=== PATIENT | male | born 1965 | race Caucasian/White ===

== ENCOUNTER 2020-01-20 06:46 | Outpatient (CLI) | payer BC, SELFPAY ==
[2020-01-20 07:06] LABS: Basophils Absolute Auto 0.06 K/mm3 (0.00-0.10); Basophils Percent Auto 0.9 % (0.0-1.0); Eosinophils Percent Auto 4.6 % (1.0-6.0); Hemoglobin 15.7 g/dL (14.0-18.0); Immature Granulocyte Absolute 0.01 K/mm3 (0.00-0.00); Immature Granulocyte Percent A 0.2 % (0.0-0.0); Lymphocytes Absolute Auto 2.18 K/mm3 (1.10-4.50); Lymphocytes Percent Auto 33.7 % (18.0-42.0); Mean Corpuscular HGB Conc 34.1 g/dL (32.0-36.0); Mean Corpuscular Hemoglobin 33.1 pg (27.0-31.0); Mean Platelet Volume 8.3 fl (8.7-11.0); Monocytes Absolute Auto 0.45 K/mm3 (0.10-0.90); Neutrophils Absolute Auto 3.5 K/mm3 (1.7-7.2); Neutrophils Percent Auto 53.6 % (50.0-70.0); Platelet Count Result 217 K/mm3 (150-420); Red Blood Count 4.74 M/mm3 (4.70-6.10); Red Cell Distribution Width 12.3 % (11.6-14.4); White Blood Count 6.5 K/mm3 (4.8-10.8)
[2020-01-20 08:28] LABS: Alanine Aminotransferase 36 U/L (16-63); Albumin Level 3.8 g/dL (3.4-5.0); Alkaline Phosphatase 55 U/L (46-116); Anion Gap 8 mmol/L (8-16); Aspartate Amino Transferase 15 U/L (15-37); Bilirubin,Total 0.4 mg/dL (0.00-1.00); Blood Urea Nitrogen 13 mg/dL (7-18); Calcium 9.3 mg/dL (8.5-10.1); Carbon Dioxide 30 mmol/L (21-32); Chloride 105 mmol/L (98-108); Cholesterol 219 mg/dL (0-200); Estimated Glomerular Filt Rate > 60; Glucose 100 mg/dL (70-99); HDL Direct 44 mg/dL (40-60); LDL Cholesterol Calculated 149 mg/dL (<130); Magnesium 2.3 mg/dL (1.8-2.4); Osmolality Calculated 296 mOsm/kg (285-295); Potassium 4.5 mmol/L (3.5-5.1); Sodium 143 mmol/L (136-145); Total Protein 6.8 g/dL (6.4-8.2); Triglycerides 130 mg/dL (0-150)
[2020-01-20 08:54] LABS: Thyroid Stimulating Hormone Reflex 0.66 u/IU/mL (0.36-3.74)
== END 2020-01-20 06:47 | disposition home or self-care (01) ==
PROVIDERS: PCP Family Medicine; Visit Provider Family Medicine
DX: E78.5 Hyperlipidemia, unspecified (principal); I10 Essential (primary) hypertension; Z12.2 Encounter for screening for malignant neoplasm of respiratory organs
CPT/HCPCS: 36415; 80053; 80061; 83735; 84443; 85025

== ENCOUNTER 2020-02-16 16:05 | Outpatient (CLI) | payer BC, SELFPAY ==
--- NOTE | ~2020-02-16 | CT_ITS ---
EXAMINATION:CT lung screening DATE: 02/16/2020 16:24 INDICATION: Personal history of tobacco dependence. Smoker who quit 2 months ago with 40 pack year hi story. TECHNIQUE: Computed tomography (CT) of the chest was performed without intravenous contrast. Automate d exposure control and iterative reconstruction technique were employed. The dose-length product (DLP ) was 96.62 mGy-cm. COMPARISON: Chest CT 10/14/2014 FINDINGS: There is mild scarring at the lung apices. There is a new 3 mm nodule in right upper lobe. No pleural effusion. The heart size is normal. There are coronary artery calcifications. No pericardi al effusion. There is mild thoracic spondylosis and severe cervical spondylosis. IMPRESSION: 1. Lung-RADS category 2: Benign appearance or behavior. Continue annual screening with noncontrast lo w-dose chest CT in 12 months. Reviewed, dictated and finalized at location A. DIVING TEACHER IMPRESSION: 1. Lung-RADS category 2: Benign appearance or behavior. Continue annual screeni ng with noncontrast low-dose chest CT in 12 months.
== END 2020-02-16 16:06 | disposition home or self-care (01) ==
LOC: CHSIMG 16:07
PROVIDERS: PCP Family Medicine; Visit Provider Family Medicine
DX: Z12.2 Encounter for screening for malignant neoplasm of respiratory organs (principal); Z87.891 Personal history of nicotine dependence
CPT/HCPCS: G0297

== ENCOUNTER 2020-03-25 15:33 | Outpatient (CLI) | payer BC, SELFPAY ==
--- NOTE | 2020-03-25 15:39 | ECG_ITS ---
Measurements Intervals [place] Rate: 52 P: 58 MD: 197 QRS: 43 QRSD: 82 T: 56 QT: 408 QTc: 382 Interpretive Statements SINUS BRADYCARDIA RSR' IN V1 OR V2, PROBABLY NORMAL VARIANT BORDERLINE ECG Electronically Signed On 03-25-2020 16:02:43 MACHINE FARMWORKER by Gerard Villanueva D.O.
== END 2020-03-25 15:34 | disposition home or self-care (01) ==
PROVIDERS: PCP Family Medicine; Visit Provider Internal Medicine Cardiovascular Disease
DX: R00.0 Tachycardia, unspecified (principal)
CPT/HCPCS: 93005

== ENCOUNTER 2020-06-23 07:27 | Outpatient (CLI) | payer BC, SELFPAY ==
[2020-06-23 08:34] LABS: Alanine Aminotransferase 45 U/L (16-63); Albumin Level 3.8 g/dL (3.4-5.0); Alkaline Phosphatase 48 U/L (46-116); Anion Gap 7 mmol/L (8-16); Aspartate Amino Transferase 12 U/L (15-37); Bilirubin,Total 0.3 mg/dL (0.00-1.00); Blood Urea Nitrogen 17 mg/dL (7-18); Calcium 9.2 mg/dL (8.5-10.1); Carbon Dioxide 29 mmol/L (21-32); Chloride 103 mmol/L (98-108); Cholesterol 173 mg/dL (0-200); Estimated Glomerular Filt Rate > 60; Glucose 98 mg/dL (70-99); HDL Direct 43 mg/dL (40-60); LDL Cholesterol Calculated 87 mg/dL (<130); Osmolality Calculated 289 mOsm/kg (285-295); Potassium 4.3 mmol/L (3.5-5.1); Sodium 139 mmol/L (136-145); Total Protein 6.8 g/dL (6.4-8.2); Triglycerides 215 mg/dL (0-150)
[2020-06-27 11:58] LABS: Vitamin D 25 Hydroxy 46 ng/mL (30-100)
== END 2020-06-23 07:28 | disposition home or self-care (01) ==
LOC: CHSLAB 07:29
PROVIDERS: Nurse Practitioner Family; PCP Family Medicine; Visit Provider Internal Medicine Cardiovascular Disease
DX: E78.5 Hyperlipidemia, unspecified (principal); E55.9 Vitamin D deficiency, unspecified
CPT/HCPCS: 36415; 80053; 80061; 82306

== ENCOUNTER 2021-03-01 06:56 | Outpatient (CLI) | payer BC, SELFPAY ==
[2021-03-01 08:59] LABS: Alanine Aminotransferase 46 U/L (16-63); Albumin Level 3.7 g/dL (3.4-5.0); Alkaline Phosphatase 61 U/L (46-116); Anion Gap 10 mmol/L (8-16); Aspartate Amino Transferase 19 U/L (15-37); Bilirubin,Total 0.3 mg/dL (0.00-1.00); Blood Urea Nitrogen 14 mg/dL (7-18); Calcium 8.7 mg/dL (8.5-10.1); Carbon Dioxide 28 mmol/L (21-32); Chloride 102 mmol/L (98-108); Cholesterol 175 mg/dL (0-200); Estimated Glomerular Filt Rate > 60; Glucose 102 mg/dL (70-99); HDL Direct 45 mg/dL (40-60); LDL Cholesterol Calculated 100 mg/dL (<130); Osmolality Calculated 290 mOsm/kg (285-295); Potassium 4.4 mmol/L (3.5-5.1); Sodium 140 mmol/L (136-145); Total Protein 6.9 g/dL (6.4-8.2); Triglycerides 152 mg/dL (0-150)
== END 2021-03-01 06:57 | disposition home or self-care (01) ==
LOC: CHSLAB 06:58
PROVIDERS: PCP Family Medicine; Visit Provider Internal Medicine Cardiovascular Disease
DX: E78.5 Hyperlipidemia, unspecified (principal)
CPT/HCPCS: 36415; 80053; 80061

== ENCOUNTER 2021-03-03 16:10 | Outpatient (CLI) | payer BC, SELFPAY ==
--- NOTE | ~2021-03-03 | CT_ITS ---
EXAMINATION: CT diagnostic chest wo con DATE: 03/03/2021 16:23 INDICATION: Pulmonary nodules. History of smoking. TECHNIQUE: Computed tomography (CT) of the chest was performed without intravenous contrast. The dose -length product was 230.51 mGy-cm. Automated exposure control and iterative reconstruction technique were employed. COMPARISON: CT dated 02/16/2020 FINDINGS: There is a stable 3 mm right upper lobe nodule, image 56. No significant pleural or pericar dial effusion. There is mild atherosclerosis of the aorta and coronary arteries. Small hiatal hernia. The upper abdomen is unremarkable. No thoracic lymphadenopathy. No new pulmonary nodules or masses. No endobronchial lesions. No pneumothorax. No focal airspace consolidation. No acute osseous abnormal ity. Mild thoracic spondylosis. IMPRESSION: 1. Stable 3 mm right upper lobe nodule, likely benign. Consider follow-up low dose CT chest in 12 mon ths. Reviewed, dictated and finalized at location A. NE PATROLLER IMPRESSION: 1. Stable 3 mm right upper lobe nodule, likely benign. Consider follow-up low d ose CT chest in 12 months.
== END 2021-03-03 16:11 | disposition home or self-care (01) ==
LOC: CHSIMG 16:10
PROVIDERS: PCP Family Medicine; Visit Provider Internal Medicine Cardiovascular Disease
DX: R91.1 Solitary pulmonary nodule (principal)
CPT/HCPCS: 71250

== ENCOUNTER 2022-01-14 02:49 | Emergency (ER) | payer BC, SELFPAY ==
--- NOTE | ~2022-01-14 | XR_ITS ---
EXAMINATION: XR shoulder RT min 2V DATE: 01/14/2022 03:22 INDICATION: Right shoulder pain post fall down stairs TECHNIQUE: AP internally and externally rotated, AP oblique externally rotated and transscapular Y vi ews of the right shoulder were obtained. COMPARISON: None FINDINGS: Normal alignment. No fracture. Glenohumeral joint is normal. Mild acromioclavicular osteoarthritis. Soft tissues are unremarkable. Visualized portion of the right lung are clear. IMPRESSION: Mild right acromioclavicular osteoarthritis. No acute osseous abnormality. Reviewed, dictated and finalized at location A.
[2022-01-14 02:55] VITALS: BP 149/93; PULSE 71; RESP 18; TEMP 36.3; O2SAT 96
--- NOTE | 2022-01-14 03:24 | ED.FALL ---
HPI - Fall General Chief Complaint: Fall Stated Complaint: FALL Time Seen by Provider: 01/14/22 03:24 Source: patient, EMS and RN notes reviewed Mode of arrival: EMS Limitations: no limitations History of Present Illness HPI Narrative: Patient states he lost his balance fell down some steps going down to the basement. complaint: fall Onset (ago): minute(s) (30) Fall from: standing Fall witnessed: yes, by family Place fall occurred: home Loss of consciousness: none Prolonged down time: no Symptoms prior to fall: none Context: tripped/slipped Location of injury - extremities: Right: shoulder Severity: moderate Quality: dull and aching Associated symptoms (after fall): denies Related Data Home Medications Medication Instructions Recorded Confirmed omega-3 fatty acids 1,000 mg 1,000 mg PO DAILY 02/24/21 01/14/22 capsule (Fish Oil Concentrate) Allergies Allergy/AdvReac Type Severity Reaction Status Date / Time No Known Allergies Allergy Verified 09/04/21 13:55 Review of Systems Review of Systems: All systems reviewed & are unremarkable except as noted in HPI and below PMFSH Past Medical History Medical History Adult general medical exam Anxiety with depression Chronic low back pain Chronic sinusitis Cigarette nicotine dependence COPD (chronic obstructive pulmonary disease) Dyslipidemia Dyspnea Encounter for screening for lung cancer Erectile dysfunction Eustachian tube dysfunction GENNY (generalized anxiety disorder) Hyperlipidemia Hyperlipidemia Nicotine dependence Persistent cough for 3 weeks or longer Screening for colorectal cancer Tobacco abuse Vitamin D deficiency Witnessed episode of apnea Surgical History Surgical History History of hand surgery fingers tied back together No history of previous surgery Family History Family History Father Heart disease Mother Heart disease Social History Social History Smoking packs per day: 0 Smoking cigarettes per day: 0.0 Years smoked: 43 Smoking pack-years: 0.00 Smoking status: Former smoker Tobacco type: cigarettes Additional smoking assessment comments: 01/2020 Alcohol intake: never Substance use: never Substance use type: does not use Additional living arrangements comments: Additional occupation/education comments: [employer] Gender identity (if verbalized by the patient): Male Spiritual care concerns: No Exam Const: General: healthy appearing, no acute distress and alert Nutritional Appearance: well nourished Orientation/consciousness: patient oriented x3 Limitations: no limitations HENMT: Head: normal to inspection Ears: external ears normal Face and sinus: normal facial exam Eyes: Conjunctivae: conjunctivae normal Pupils: Equal, round and reactive pupils present EOM: EOMs intact bilaterally Neck: Neck: normal visual inspection Resp: Effort & Inspection: normal respiratory effort Auscultation: clear to auscultation bilaterally Cardio: Rate: regular rate Rhythm: regular rhythm GI: Auscultation: normal bowel sounds Back/Spine/Pelvis: Cervical Spine: cervical ROM normal Thoracic/Lumbar Spine: thoraco-lumbar ROM normal Skin: General skin exam: normal color Rashes: no rashes Wounds: no wounds Neuro: General: patient oriented x3, moves all extremities, no focal motor deficits and CN's II-XI intact bilaterally Speech: normal speech Extrem: General: normal exam except as noted and no clubbing, cyanosis or edema Right upper extremity: shoulder/upper arm tenderness of the proximal humerus and abnormal ROM pain with active ROM in ABduction and pain with passive ROM with ABduction; no abrasions, no ecchymosis and no deformity Psych: Mental Status: mental status grossly lissette
[2022-01-14 03:40] VITALS: BP 138/86; PULSE 78; RESP 20; O2SAT 99
== END 2022-01-14 03:42 | disposition home or self-care (01) ==
PROVIDERS: Emergency Provider Emergency Medicine; PCP Family Medicine
DX: S40.011A Contusion of right shoulder, initial encounter (principal); W10.9XXA Fall (on) (from) unspecified stairs and steps, initial encounter
CPT/HCPCS: 73030; 99283

== ENCOUNTER 2022-01-19 07:22 | Outpatient (CLI) | payer BC, SELFPAY ==
--- NOTE | ~2022-01-19 | US_ITS ---
EXAMINATION: US abdomen limited DATE: 01/19/2022 08:02 INDICATION: Right upper quadrant pain TECHNIQUE: Multiple grayscale and Doppler ultrasound images of the abdomen were obtained. COMPARISON: None available FINDINGS: Bowel gas obscures visualization of the pancreas. The visualized portions of the pancreas a re unremarkable. The liver is normal with normal echogenicity and echotexture. No surface nodularity. Normal hepatopetal flow in the main portal vein. The gallbladder is normal with no abnormal wall thi ckening, pericholecystic fluid or stones. The normal common bile duct measures 3 mm. There was no son ographic Aldridge sign. IMPRESSION: 1. Normal sonographic study of the gallbladder. Reviewed, dictated and finalized at location A.
== END 2022-01-19 07:23 | disposition home or self-care (01) ==
LOC: CHSIMG 07:24
PROVIDERS: PCP Family Medicine; Visit Provider Family Medicine
DX: R10.11 Right upper quadrant pain (principal)
CPT/HCPCS: 76705

== ENCOUNTER 2022-04-03 09:11 | Outpatient (CLI) | payer BC, SELFPAY ==
--- NOTE | 2022-04-14 09:37 | P.PCNPFT_ITS ---
PFT Procedure Performed PFT Procedure Performed Spirometry with Pre/Post Bronchodilator Plethysmography (Lung Vol) Diffusing Cap (DLCO) Spirometry w/o Bronchodil PFT Interpretation DOS: 04/03/2022 REQUESTING: Dr Curtis REASON FOR TESTING: Shortness of breath PULMONARY FUNCTION TESTS Results are reliable and reproducible. Spirometry: pre bronchodilator FEV1 is 2.08 L, 73%, normal. Pre bronchodilator FVC 3.39 L, 94%, normal. FEV1/FVC is 61%, decreased. After bronchodilator, there is a 20% increase in FEV1, 2.5 L, 88% predicted. After bronchodilator there is a 21% increase in the FVC, 114%. The ratio remains decreased 61% predicted. Lung volumes: Total lung capacity is 6.12 L, 111% predicted, normal. Residual volume is 2.73 L, 138% predicted, increased, consistent with mild air trapping. RV/TLC is increased 45% consistent with air trapping. Diffusion: DLCO 21.4, 99% predicted, normal. DLCO /VA 3.77, 96% normal. Flow volume loop: There is extreme flattening of the inspiratory limb. IMPRESSION: This full pulmonary function study shows a mild obstructive ventilatory impairment with good response to bronchodilator, mild air trapping and normal diffusion. The flow volume loop is abnormal with flattening of the inspiratory limb which is consistent with variable extrathoracic upper airway obstruction. This flow volume loop finding is not specific and can be seen in a variety of conditions such as vocal fold paralysis, extrathoracic tr acheomalacia, polychondritis, and mobile tumors. Consider ENT evaluation. Melissa Lorenz MD
== END 2022-04-03 09:12 | disposition home or self-care (01) ==
LOC: CHSCARD 09:12
PROVIDERS: PCP Family Medicine; Visit Provider Family Medicine
DX: R06.00 Dyspnea, unspecified (principal); R94.2 Abnormal results of pulmonary function studies
CPT/HCPCS: 94060; 94726; 94729

== ENCOUNTER 2022-05-09 08:36 | Outpatient (CLI) | payer BC, SELFPAY ==
[2022-05-09 09:06] LABS: Hematocrit 49.6 % (40.0-54.0); Hemoglobin 16.7 g/dL (14.0-18.0); Mean Corpuscular HGB Conc 33.7 g/dL (32.0-36.0); Mean Corpuscular Hemoglobin 32.2 pg (27.0-31.0); Mean Corpuscular Volume 95.6 fL (78.0-102.0); Mean Platelet Volume 8.4 fl (8.7-11.0); Platelet Count Result 214 K/mm3 (150-420); Red Blood Count 5.19 M/mm3 (4.70-6.10); Red Cell Distribution Width 11.9 % (11.6-14.4); White Blood Count 7.7 K/mm3 (4.8-10.8)
[2022-05-09 09:28] LABS: Alanine Aminotransferase 41 U/L (16-63); Albumin Level 3.9 g/dL (3.4-5.0); Alkaline Phosphatase 49 U/L (46-116); Anion Gap 6 mmol/L (8-16); Aspartate Amino Transferase 16 U/L (15-37); Bilirubin,Total 0.3 mg/dL (0.00-1.00); Blood Urea Nitrogen 14 mg/dL (7-18); Calcium 9.1 mg/dL (8.5-10.1); Carbon Dioxide 35 mmol/L (21-32); Chloride 104 mmol/L (98-108); Estimated Glomerular Filt Rate > 60; Glucose 95 mg/dL (70-99); Osmolality Calculated 300 mOsm/kg (285-295); Potassium 4.1 mmol/L (3.5-5.1); Sodium 145 mmol/L (136-145); Total Protein 7.2 g/dL (6.4-8.2)
[2022-05-09 09:31] LABS: CRP < 0.5 mg/dL (0.0-0.9)
[2022-05-09 09:38] LABS: Thyroid Stimulating Hormone Reflex 0.83 u/IU/mL (0.36-3.74)
[2022-05-09 09:39] LABS: Rheumatoid Factor Screen Negative (Negative)
[2022-05-09 10:31] LABS: Erythrocyte Sedimentation Rate 4 mm/hr (0-20)
[2022-05-14 09:19] LABS: ANA Cascade Screen Negative (Negative)
== END 2022-05-09 08:37 | disposition home or self-care (01) ==
LOC: CHSLAB 08:37
PROVIDERS: PCP Family Medicine; Visit Provider Family Medicine
DX: E11.9 Type 2 diabetes mellitus without complications (principal); M25.50 Pain in unspecified joint
CPT/HCPCS: 36415; 80053; 84443; 85027; 85652; 86038; 86140; 86430

== ENCOUNTER 2024-09-09 07:35 | Outpatient (CLI) | payer OTHER, SELFPAY ==
--- OUTSIDE RECORDS SUMMARY | 2024-09-09 07:40 | XMS_ITS | CONTINUITY OF CARE DOCUMENT ---
Author Name rabia, rabia Address Unknown Organization [facility] Address [address] [place] [address] Phone [phone] Care Team Providers Care Biomass Boiler Operator Name Role Phone Baltazar DENG, Bubba Unavailable [phone] LAKEISHA GRAF MD Unavailable [phone] LAKEISHA GRAF MD Unavailable [phone] PROBLEMS Condition Status Date Provider Notes Tobacco abuse active Bubba Ledesma MD Hypercholesterolemia active Bubba Ledesma MD FAMILY HISTORY OF HEART DISEASE active Ibrahima Ledesma MD Chest pain-type to be determined active Carmelal Ledesma MD Shortness of breath active Bubba Suarez ENCOUNTERS Date Type Provider Location Encounter Diag nosis 4 - 6 In-person encounter Office Visit Bubba Ledesma MD [facility] Tobacco abuseHypercholesterolemiaFAMILY HISTORY OF HEART DISEASEChest pain-type to be determinedShortness of breath VITAL SIGNS Date Observation Value Provider Body Mass Index (Ratio) 23.56 kg/m2 Ibrahima Ledesma MD blood pressure, diastolic, left arm 78 mm [Hg] Bubba Ledesma MD blood pressure, systolic, left arm 128 mm [Hg] Bubba Ledesma MD blood pressure, diastolic, right arm 78 m m[Hg] Bubba Ledesma MD blood pressure, systolic, right arm 128 m m[Hg] Bubba Ledesma MD blood pressure, diastolic 78 mm[Hg] Garrett Ledesma MD blood pressure, systolic 128 mm[Hg] Carmella Ledesma MD pulse rate 66 /min Bubba Ledesma MD oxygen saturation, oximetry 94 % Bubba Ledesma MD respiratory rate E&M 16 /min Reji Ledesma MD weight E&M 146 [lb_av] Bubba Ledesma MD height E&M 66 [in_i] Bubba Ledesma MD ALLERGIES No Known Drug Allergies HISTORY OF MEDICATION USE Medication Status Instructions Dates Provider Indications Com ments ATORVASTATIN CALCIUM 40 MG ORAL TABLET active Bubba Ledesma MD SOCIAL HISTORY Date Observation Value Provider number of years as a smoker 36 a Bubba Ledesma MD smoking history, tot al pack/day 1 Bubba Ledesma MD cigarette use yes Bubba Ledesma MD social history E&M S moking History: Jamal alfonso currently smokes every day, since he was age 12. Jamal alfonso has been counseled to quit. Bubba Ledesma MD smoking/tobacco cess ation, patient education and counseling yes Bubba Ledesma MD smoking status Current every day smoker M lili Ledesma MD social history reviewed E&M revi ewed - no changes required Bubba Ledesma MD FAMILY HISTORY Family Member Condition Father Family History of Co ronary Artery Disease: INSURANCE PROVIDERS Payer name Policy type / Coverage type Orient red republican ID [employer]UG[employer] Other [id number] TREATMENT PLAN Date Name Performer printed to lorenzo: O rders: 9 9205 HIGH Complex (CPT-28444) S TR - Nuclear (76213) C omplete Echo (CPT-67803) F ull PFT (*) Bubba Ledesma MD printed to lorenzo: O rders: 9 9205 HIGH Complex (CPT-67802) S TR - Nuclear (21809) C omplete Echo (CPT-62057) F ull PFT (*) Bubba Ledesma MD printed to lorenzo: Strongly advised to quit smoking. Orders: 9 9205 HIGH Complex (CPT-49392) S TR - Nuclear (12767) C omplete Echo (CPT-58087) F ull PFT (*) Bubba Ledesma MD printed to lorenzo: On Atorvastatin. His updated medication list for this problem includes: Atorvastatin Calcium 40 Mg Oral Tabs (Atorvastatin calcium) Orders: 9 92 HIGH Complex (CPT-43945) S TR - Nuclear (97709) C omplete Echo (CPT-34818) F ull PFT (*) Bubba Ledesma MD printed to lorenzo: Right shoulder pain and shortness of breath in a pt who is physically very active. Unclear etiology. Will arrange for him to have a stress test, echocardiogram, and a PFT. & #13;Orders: 9 9205 HIGH Complex (CPT-37777) S TR - Nuclear (98883) C omplete Echo (CPT-77929) F ull PFT (*) Bubba Ledesma MD Date Name Full PFT Complete Echo STR - Nuclear
[2024-09-09 08:26] LABS: Alanine Aminotransferase 32 U/L (6-50); Albumin Level 4.2 g/dL (3.5-5.1); Alkaline Phosphatase 54 U/L (38-126); Anion Gap 2 mmol/L (4-12); Aspartate Amino Transferase 28 U/L (17-59); Bilirubin,Total 0.7 mg/dL (0.2-1.3); Blood Urea Nitrogen 13 mg/dL (9-20); Calcium 9.2 mg/dL (8.4-10.2); Carbon Dioxide 31 mmol/L (22-30); Chloride 107 mmol/L (98-107); Estimated Glomerular Filt Rate > 60; Glucose 95 mg/dL (65-110); Osmolality Calculated 290 mOsm/kg (285-295); Potassium 3.8 mmol/L (3.4-5.0); Sodium 140 mmol/L (137-145); Total Protein 6.7 g/dL (6.3-8.2)
[2024-09-09 09:24] LABS: Alanine Aminotransferase 33 U/L (6-50); Albumin Level 4.2 g/dL (3.5-5.1); Alkaline Phosphatase 48 U/L (38-126); Anion Gap 3 mmol/L (4-12); Aspartate Amino Transferase 30 U/L (17-59); Bilirubin,Total 0.7 mg/dL (0.2-1.3); Blood Urea Nitrogen 13 mg/dL (9-20); Carbon Dioxide 29 mmol/L (22-30); Chloride 108 mmol/L (98-107); Cholesterol 169 mg/dL (0-200); Estimated Glomerular Filt Rate > 60; Glucose 95 mg/dL (65-110); HDL Direct 50 mg/dL; LDL Cholesterol Calculated 92 mg/dL (<130); Osmolality Calculated 290 mOsm/kg (285-295); Potassium 3.9 mmol/L (3.4-5.0); Sodium 140 mmol/L (137-145); Total Protein 6.7 g/dL (6.3-8.2); Triglycerides 136 mg/dL (<150)
== END 2024-09-09 07:36 | disposition home or self-care (01) ==
PROVIDERS: PCP Family Medicine; Visit Provider Internal Medicine Cardiovascular Disease
DX: E78.5 Hyperlipidemia, unspecified (principal)
CPT/HCPCS: 36415; 80053; 80061

== ENCOUNTER 2024-10-10 15:19 | Outpatient (CLI) | payer OTHER, SELFPAY ==
--- OUTSIDE RECORDS SUMMARY | 2024-10-10 15:24 | XMS_ITS | Clinical Summary ---
Author Organization [facility] Address [facility] [place] [address] Care Team Providers Care Metal Numerical Tool Programmer Name Role Phone Dolores Phoenix MD Primary Care Provider [phone] Allergies No known active allergies Medications albuterol sulfate HFA 108 (90 Base) MCG/ACT inhaler Inhale 2 puffs into the lungs every 4 (four) hours as needed. 02/20/2024 Active atorvastatin (LIPITOR) 80 MG tablet Take 1 tablet (80 mg total) by mouth nightly at bedtime. 02/05/2023 Active vitamin D3 (CHOLECALCIFERO L) 1.25 mg capsule Take 1 capsule (1.25 mg total) by mouth once a week. 02/05/2023 Active ZETIA 10 MG tablet Take 1 tablet (10 mg total) by mouth daily. 02/05/2023 Active gabapentin (NEURONTIN) 600 MG tablet Take 1 tablet (600 mg total) by mouth 3 (three) times daily. 04/07/2024 Active HYDROcodone-austin taminophen (NORCO) 5-325 MG tablet Take 1 tablet by mouth every 4 (four) hours as needed. 04/19/2024 Active tiZANidine (ZANAFLEX) 2 MG tablet Take 1 tablet (2 mg total) by mouth every 6 (six) hours as needed. 04/07/2024 Active tadalafil (CIALIS) 10 MG tablet Take 1 tablet (10 mg total) by mouth daily as needed. 07/16/2023 Active Salem-3 Fatty Acids (FISH OIL) 500 MG capsule Take 500 mg by mouth daily. Active Active Problems No known active problems Encounters Date Type Department Care Team Description 08/08/2024 7:52 AM CDT - 08/08/2024 11:59 PM CDT Hospital Encounter [facility] [address] [place] [address] Dolores Phoenix MD Quarton, Brian L, MD Discharge Disposition: Home or Self Care (Routine Discharge) 08/08/2024 Travel 08/02/2024 Transcribe Orders [facility] Pre Access Team [address] [place] [address] Dolores Phoenix MD from Last 3 Months Family History Medical History Relation Comments Heart Attack Father Dementia Mother Relation Status Comments Father Mother Alive Social History Tobacco Use Types Packs/Day Years Used Date Smoking Tobacco: Former Cigarettes 2 45.5 S tarted: 1979 Smokeless Tobacco: Never Tobacco Cessation:Counseling Given: Not Answered Alcohol Use Standard Drinks/Week Comments Yes 0 (1 standard drink = 0.6 oz pur e alcohol) Sex and Gender Information Value Date Recorded Sex Assigned at Male 04/26/2024 3:32 PM MAINTENANCE FOREMAN Legal Sex Male 2:35 PM CDT Gender Identity Not on file Sexual Orientation Not on file Last Filed Vital Signs Vital Sign Reading Time Taken Comments Blood Pressure 133/78 01/12/2023 5:06 PM CDT Pulse 76 01/12/2023 5:06 PM CDT Temperature 36.6 C (97.8 F) 01/12/2023 5:06 PM CDT Respiratory Rate 20 01/12/2023 5:06 PM CDT Oxygen Saturation 97% 01/12/2023 5:06 PM CDT Inhaled Oxygen Concentration - - Weight 77.6 kg (171 lb) 04/25/2024 7:51 AM MAINTENANCE FOREMAN Height 168.9 cm (5' 6.5) 04/25/2024 7:51 AM CS T Body Mass Index 27.19 04/25/2024 7:51 AM MAINTENANCE FOREMAN Plan of Treatment Health Maintenance Due Date Last Done Comments ASCVD LDL 1964 Colorectal Cancer Screening Colonoscopy (10 Years) 1964 Annual Physical 12/31/1967 Hepatitis C 1982 DTaP, Tdap and Td Vaccines ( 1 - Tdap) 12/31/1983 Pneumococcal Vaccine: 50+ Years (1 of 2 - PCV) 12/31/1983 Zoster Vaccines (1 of 2) 2014 COVID-19 Vaccine (2023-2 5 season) 2023 04/09/2021, 07/09/2020, 06/18/2020 Lung Cancer Screening 04/26/2025 04/26/2024 , 01/26/2024, 10/23/2022 Meningococcal B Vaccine Aged Out No l onger eligible based on patient's age to complete this topic Meningococcal Vaccine Aged Out No raheem wojciech eligible based on patient's age to complete this topic RSV Immunizations Under 20 Months Aged Out No longer eligible b ased on patient's age to complete this topic Procedures Procedure Name Priority Date/Time Associated Diagnosis Comments STRESS TEST ONLY, EXERCISE Routine 08/08/2024 8:00 AM CDT Coronary artery disease involving [place] coronary artery of [place] heart, unspecified whether angina present CT CHEST WO CON Routine 04/26/2024 4:43 PM MAINTENANCE FOREMAN Bronchitis from Last 3 Months or Most Recently Relevant to Health Maintenance Results * CT CHEST WO CON (04/26/2024 4:43 PM MAINTENANCE FOREMAN) Anatomical Region Laterality Modality Chest Computed Tomogra phy 04/27/2024 10:3 2 AM MAINTENANCE FOREMAN Narrative 04/27/2024 10:41 AM MAINTENANCE FOREMAN [address] [place] [address] EXAM: LOW-DOSE CT THORAX WITHOUT CONTRAST DATE: 04/26/2024 HISTORY: Lung RADS 0 incomplete exam on 01/26/2024. Follow-up for pneumonia detected on lung cancer screening exam. COMPARISON: 01/26/2024. 10/23/2022. TECHNIQUE: Noncontrast, helical, low-dose CT (LDCT) chest per standard departmental protocol. A dose lowering technique was used for this procedure, which may include, but is not limited to, dose reduction technique, automated exposure control, the use of iterative reconstruction, and ALARA (As Low As Reasonably Achievable) / Image Gently techniques. FINDINGS: Lung Screening Specific (LUNG-RADS): Nodule 1 (image 87, series 3): 4.5 mm solid, smooth, parenchymal nodule in the right upper lobe, similar to the prior exam. Previously described central bronchovascular groundglass nodular opacities in the right middle lobe, resolved. Potentially Significant Incidentals (LUNG-RADS category S): None. Pulmonary Incidentals: Fissural lymph node. Mild mucous plugging in the right middle lobe. Other Incidentals: Coronary artery calcification. Atherosclerotic calcification of the thoracic aorta. Multilevel spondylosis. IMPRESSION; 1. LUNG-RADS category 2: Negative. Lung nodule(s) with benign appearance or behavior. 2. LUNG-RADS category S: Negative, no new/unknown potentially significant incidental findings requiring urgent additional evaluation. 3. Coronary artery disease. RECOMMENDATIONS: Continued routine annual LDCT lung screening. Suggest next exam on or around April 2025 Thank you for choosing the [facility] Lung Screening Program. Ordered By: DOLORES PHOENIX Interpreted By: Myke Lobato MD, 04/27/2024 10:32 AM Procedure Note Myke Lobato MD - 04/27/[address] [place] [address] EXAM: LOW-DOSE CT THORAX WITHOUT CONTRAST DATE: 04/26/2024 HISTORY: Lung RADS 0 incomplete exam on 01/26/2024. Follow-up forpneumonia detected on lung cancer screening exam. COMPARISON: 01/26/2024. 10/23/2022. TECHNIQUE: Noncontrast, helical, low-dose CT (LDCT) chest per standarddepartmental protocol. A dose lowering technique was used for thisprocedure, which may include, but is not limited to, dose reductiontechnique, automated exposure control, the use of iterativereconstruction, and ALARA (As Low As Reasonably Achievable) / Image Gentlytechniques. FINDINGS: Lung Screening Specific (LUNG-RADS): Nodule 1 (image 87, series 3): 4.5 mm solid, smooth, parenchymal nodule inthe right upper lobe, similar to the prior exam. Previously described central bronchovascular groundglass nodular opacitiesin the right middle lobe, resolved. Potentially Significant Incidentals (LUNG-RADS category S): None. Pulmonary Incidentals: Fissural lymph node. Mild mucous plugging in theright middle lobe. Other Incidentals: Coronary artery calcification. Atheroscleroticcalcification of the thoracic aorta. Multilevel spondylosis. IMPRESSION; 1. LUNG-RADS category 2: Negative. Lung nodule(s) with benign appearanceor behavior. 2. LUNG-RADS category S: Negative, no new/unknown potentially significantincidental findings requiring urgent additional evaluation. 3. Coronary artery disease. RECOMMENDATIONS: Continued routine annual LDCT lung screening. Suggestnext exam on or around April 2025 Thank you for choosing the [facility]. Ordered By: DOLORES PHOENIX Interpreted By: Myke Lobato MD, 04/27/2024 10:32 AM us Dolores Phoenix MD CT Final Resu lt from Last 3 Months or Most Recently Relevant to [place] [id number] Care Teams Metal Numerical Tool Programmer Relationship Specialty Start Date End Date Dolores Phoenix MD [address] [place] [id number] PCP - General FAMILY PRACTICE 10/23/22
--- NOTE | 2024-10-10 15:26 | ECHO_ITS ---
Patient Info Name: Hema Miller Age: 58 years : 1965 Gender: Male Ht: 66 in Wt: 172 lbs BSA: 1.92 m2 HR: 82 bpm BP: 130 / 90 mmHg Technical Quality: Good Exam Date: 10/10/2024 3:27 PM Patient Status: O Admit Date: 10/10/2024 Exam Type: CA echo doppler color flow Complete two-dimensional, color flow and Doppler transthoracic echocardiogram is performed. Senior Partner: Jacque Guzman Attending Provider: Gerard Villanueva DO Summary 1. Complete two-dimensional, color flow and Doppler transthoracic echocardiogram is performed. 2. Left ventricular chamber dimension is normal. 3. Left ventricular systolic function is normal, estimated at 60-65. 4. The left ventricular diastolic function is normal. 5. There is trace mitral valve regurgitation. 6. No pulmonary hypertension, estimated pulmonary arterial systolic pressure is 27 mmHg. Left Ventricle Tissue doppler was not performed. Left ventricular chamber dimension is normal. Left ventricular systolic function is normal, estimated at 60-65. The left ventricular diastolic function is normal. Right Ventricle Right ventricular chamber dimension is normal. Right ventricular systolic function is normal. and with normal TAPSE 1.9 cm. Left Atria Left atrial chamber dimension is normal. Right Atria Right atrial chamber dimension is normal. Aortic Valve The aortic valve is trileaflet. There is no aortic valve stenosis. There is no aortic valve regurgitation. Pulmonic Valve There is no pulmonic regurgitation. Mitral Valve There is no mitral valve stenosis. There is trace mitral valve regurgitation. Tricuspid Valve There is no tricuspid valve regurgitation. No pulmonary hypertension, estimated pulmonary arterial systolic pressure is 27 mmHg. Pericardium/Pleural There is no pericardial effusion. Inferior Vena Cava Normal inferior vena cava with >50% collapse upon inspiration consistent with normal right atrial pressure, 5 mmHg. Aorta The aortic root size at the sinus of Valsalva is normal. Left Ventricular Outflow Tract Name Value Normal LVOT 2D LVOT Diameter 2.2 cm LVOT Doppler LVOT Peak Velocity 97 cm/s LVOT Peak Gradient 4 mmHg LVOT Mean Gradient 2 mmHg LVOT VTI 17 cm LVOT VTI/AV VTI Ratio 0.7 LVOT Stroke Volume 67 ml LVOT CO 3.9 l/min LVOT CI 2.0 l/min/m2 Pulmonic Valve Name Value Normal PV Doppler PV Peak Velocity 75 cm/s PV Peak Gradient 2 mmHg Mitral Valve Name Value Normal MV Doppler MV Peak Gradient 3 mmHg MV Mean Gradient 1 mmHg MV Area (Cont Eq VTI) 2.6 cm2 MV Diastolic Function MV E Peak Velocity 78 cm/s MV A Peak Velocity 67 cm/s MV E/A 1.2 MV Decel Time (PW) 228 ms Tricuspid Valve Name Value Normal TV Regurgitation Doppler TR Peak Velocity 234 cm/s TR Peak Gradient 22 mmHg Estimated PAP/RSVP RA Pressure 5 mmHg <=5 PA Systolic Pressure 27 mmHg <36 RV Systolic Pressure 27 mmHg <36 TV Annular TDI TV Lateral Judith s' Velocity 12.8 cm/s >=9.5 Aortic Valve Name Value Normal AV Doppler AV Peak Velocity 130 cm/s AV Peak Gradient 7 mmHg AV Mean Gradient 4 mmHg AV VTI 26 cm AV Area (Cont Eq VTI) 2.5 cm2 >=3.0 AV Area (Cont Eq Adam) 2.9 cm2 AV DI (Adam) 0.75 AV Regurgitation 2D LVOT Area 3.9 cm2 Ventricles Name Value Normal LV Dimensions 2D/MM IVS Diastolic Thickness (2D) 0.8 cm 0.6-1.0 LVID Diastole (2D) 4.4 cm 4.2-5.8 LVIW Diastolic Thickness (2D) 0.8 cm 0.6-1.0 LVID Systole (2D) 3.3 cm 2.5-4.0 LVOT Diameter 2.2 cm LV Mass (2D Cubed) 108.35 g 88.00-224.00 LV Mass Index (2D Cubed) 56 g/m2 49-115 Relative Wall Thickness (2D) 0.35 <=0.42 LV Fractional Shortening/Ejection Fraction 2D/MM LV Fractional Shortening (2D) 24 % 25-43 LV EF (2D Teichholz) 49 % LV Diastolic Volume (4C MOD) 85 ml LV EF (4C MOD) 66 % LV Diastolic Volume (2C MOD) 106 ml LV EF (2C MOD) 68 % LV Diastolic Volume (BP MOD) 96 ml 62-150 LV Diastolic Volume Index (BP MOD) 50 ml/m2 34-74 LV Systolic Volume (BP MOD) 33 ml 21-61 LV Systolic Volume Index (BP MOD) 17 ml/m2 11-31 LV EF (BP MOD) 66 % 52-72 LV Diastolic Length (4C) 8.7 cm LV Systolic Length (4C) 7.3 cm LV Stroke Volume (4C MOD) 56 ml Atria Name Value Normal LA Dimensions LA Volume (4C A-L) 26 ml LA Volume (BP A-L) 38 ml RA Dimensions RA Systolic Major [place] Length (4C) 5.0 cm 2.1-2.7 RA Area (4C) 13.1 cm2 <=18.0 Report Signatures
== END 2024-10-10 15:20 | disposition home or self-care (01) ==
LOC: CHSCARD 15:22
PROVIDERS: PCP Family Medicine; Visit Provider Internal Medicine Cardiovascular Disease
DX: R06.00 Dyspnea, unspecified (principal)
CPT/HCPCS: 93306